=== PATIENT | female | born 1960 | race Caucasian/White ===

== ENCOUNTER → 2017-10-29 | Day surgery (SDC) | payer BC ==
[~2017-10-29] MED LIST: ALPR0.25 PO; AMLO5TAB2 PO; ASPI-183 PO; HYDR-3516 PO; LORA-650 PO; METH8TAB3 PO; METO25TA3 PO; MIDAZOLAM HCL 2 MG/2 ML VIAL IV ONE; NO ITAB PO; PROPOFOL 200 MG/20 ML AMP IV ONE; SODIUM CHLORIDE 0.9% 10 ML VIAL ONE; VITACAP7 PO
--- NOTE | 2017-10-29 09:47 | M6 ---
cc: Frannie Olivarez MD DATE: 10/29/2017 DATE OF : 1960. PROCEDURE PERFORMED: Fluoroscopically-guided injection of neurolytic substance bilateral sacroiliac joints (3% phenol). History and physical was completed and signed. Consent was signed. Procedure site was marked. Medications were listed and reconciled. Pain score was recorded. Allergies were noted. Time out was taken. Fluoroscopy time was recorded where applicable. Sedation was administered or directed by Dr. Olivarez. The patient was given oxygen. The patient was monitored by a registered nurse. Total procedure time was greater than 15 minutes. PROCEDURE NOTE: IV was started. Blood pressure cuff, pulse oximeter and EKG were applied. The patient was placed in the prone position on a Quique table, sedated with small amounts of Propofol titrated to effect. Vital signs were monitored and remained stable throughout the procedure. The sacral area was prepped with alcohol and 10% Betadine solution and draped with sterile drapes. Fluoroscopy was used shooting from medial to lateral to clearly visualize the posterior joint line of the bilateral sacroiliac joints. Separate sterile 5 inch, 22-gauge spinal needles were advanced into these joints under fluoroscopic guidance. There was negative aspiration for blood or any other type of fluid and at each location, the patient was given 1 mL of 3% phenol. Following this, the patient was taken to the recovery room with stable vital signs, neurologically intact. She will be evaluated immediately and with followup to determine if she has a subjective decrease in her usual pain and a corresponding objective increase in her functional capabilities. MD RAVI Kurtz/MICHELLE , 09:31 AM , 09:46 AM
== END | disposition home or self-care (01) ==
LOC: PHSDC 08:20
PROVIDERS: ATTEND Pain Medicine Interventional Pain Medicine
DX: M54.5 Low back pain (principal); M46.1 Sacroiliitis, not elsewhere classified
CPT/HCPCS: 64640; 99152; J2250

== ENCOUNTER → 2017-11-24 | Day surgery (SDC) | payer BC ==
[~2017-11-24] MED LIST changes: +BUPIVACAINE HCL PF 0.75% 30 ML VIAL ONE; -MIDAZOLAM HCL 2 MG/2 ML VIAL IV ONE; -SODIUM CHLORIDE 0.9% 10 ML VIAL ONE; +TRIAMCINOLONE ACETONIDE 40 MG/ML VIAL I-ARTICULR ONE
--- NOTE | 2017-11-24 10:26 | M6 ---
cc: Frannie Olivarez MD DATE: 11/24/2017 PROCEDURE: Fluoroscopically-guided injection, bilateral lumbar facet joints (bilateral L3-L4, L4-L5, and L5-S1 facet joints). History and physical was completed and signed. Consent was signed. Procedure site was marked. Medications were listed and reconciled. Pain score was recorded. Allergies were noted. Time out was taken. Fluoroscopy time was recorded where applicable. Sedation was administered or directed by Dr. Olivarez. The patient was given oxygen. The patient was monitored by a registered nurse. Total procedure time was greater than 15 minutes. DESCRIPTION OF PROCEDURE: IV was started. Blood pressure cuff, pulse oximeter and EKG were applied. The patient was placed in the prone position on a Quique table, sedated with small amounts of propofol titrated to effect. Vital signs were monitored and remained stable throughout the procedure. The lumbar area was prepped with alcohol and 10% Betadine solution and draped with sterile drapes. Fluoroscopy was used in a [place]yll[place] dog view to clearly visualize the bilateral lumbar facet joints at L3-L4, L4-L5 and L5-S1. Separate sterile 3-1/2 inch, 25 gauge spinal needles were advanced into these joints under fluoroscopic guidance. There was negative aspiration for blood or any other type of fluid and at each location the patient was given 1 mL of Marcaine 0.75%, which contained 10 mg of Kenalog. Following the procedure, the patient was taken to the recovery room with stable vital signs and neurologically intact. She will be evaluated immediately and with followup to determine if she has a subjective decrease in her pain and a corresponding objective increase in her functional capabilities. Frannie Olivarez MD WRM/TL , 10:12 AM , 10:26 AM
== END | disposition home or self-care (01) ==
LOC: PHSDC 08:42
PROVIDERS: ATTEND Pain Medicine Interventional Pain Medicine
DX: M54.5 Low back pain (principal)
CPT/HCPCS: 64493; 64494; 64495; 99152; J3301